=== PATIENT | female | born 1985 | race African-American/Black ===

== ENCOUNTER 2016-10-03 15:02 | Emergency (ER) | payer SELFPAY ==
[~2016-10-03] VITALS: Ht 160 cm; Wt 83.0 kg
[2016-10-03 15:36] VITALS: BP 123/75
== END 2016-10-03 20:44 | disposition left against medical advice (07) ==
LOC: ER 17:41
DX: Z53.21 Procedure and treatment not carried out due to patient leaving prior to being seen by health care provider (principal)

== ENCOUNTER 2018-02-16 22:59 | Emergency (ER) | payer SELFPAY ==
[~2018-02-16] VITALS: Ht 160 cm; Wt 84.0 kg
[2018-02-17 03:35] VITALS: BP 118/72
== END 2018-02-17 04:20 | disposition left against medical advice (07) ==
LOC: ER 22:59
DX: S51.811A Laceration without foreign body of right forearm, initial encounter (principal); Z53.21 Procedure and treatment not carried out due to patient leaving prior to being seen by health care provider; X58.XXXA Exposure to other specified factors, initial encounter; Y93.89 Activity, other specified; Y92.89 Other specified places as the place of occurrence of the external cause; Y99.8 Other external cause status